=== PATIENT | male | born 1960 | race Caucasian/White ===

== ENCOUNTER → 2020-08-12 | Outpatient (CLI) | payer MEDICARE, OTHER ==
[~2020-08-12] MED LIST: ALLERGY INJ SQ; ASPIRIN EC81 MG PO; BACTRIM DS TAB1 EACH PO; CITRUCEL500 MG PO; DULERA 200 MCG8.8 GM INH; FISH OIL 1,0001 EAC3 PO; LIPITOR TAB 1010 MG PO; MULTIVITAMINS1 EAC1 PO; NORCO 5-325 TA1 EACH PO; PREDNISONE20 MG PO; PROAIR HFA8.5 GM INH; ROBAXIN 750 MG750 MG PO; ROBITUSSIN AC480 ML PO; SINGULAIR10 MG PO; SYNTHROID75 MCG PO; TESSALON PERLE100 MG PO; TYLENOL W/CODEIN1 E1 PO; VITAMIN D2000 UNI1 PO
== END ==
LOC: KOH-I 15:25
DX: M79.642 Pain in left hand (principal)
CPT/HCPCS: 73130

== ENCOUNTER → 2020-09-18 | Outpatient (CLI) | payer BLACK LUNG, MEDICARE, OTHER | LOC: CT 10:05 | DX: J60 Coalworker's pneumoconiosis (principal) | CPT/HCPCS: 71250 ==

== ENCOUNTER → 2021-03-12 | Outpatient (CLI) | payer BLACK LUNG, MEDICARE | LOC: KOH-I 10:30 | DX: J60 Coalworker's pneumoconiosis (principal); R91.8 Other nonspecific abnormal finding of lung field | CPT/HCPCS: 71250 ==

== ENCOUNTER → 2021-07-06 | Outpatient (CLI) | payer BLACK LUNG, MEDICARE | LOC: KOH-I 09:59 | DX: R06.02 Shortness of breath (principal); R91.8 Other nonspecific abnormal finding of lung field | CPT/HCPCS: 71046 ==

== ENCOUNTER → 2021-08-03 | Outpatient (CLI) | payer MEDICARE, BLACK LUNG ==
[2021-08-03 09:16] LABS: HEMOGLOBIN 15.5 gm/dl (14.0-17.5); RED BLOOD COUNT 4.97 M/UL (4.20-5.50); WHITE BLOOD COUNT 11.8 K/UL (4.5-11.0)
[2021-08-04 07:12] LABS: BUN 14 mg/dL (8-27); BUN/CREATININE RATIO 13 (10-24); CALCIUM, SERUM 9.8 mg/dL (8.6-10.2); CARBON DIOXIDE, TOTAL 25 mmol/L (20-29); CHLORIDE, SERUM 104 mmol/L (96-106); CHOLESTEROL, TOTAL 164 mg/dL (100-199); EGFR IF AFRICN AM 82 (>59); EGFR IF NONAFRICN AM 71 (>59); GLUCOSE, SERUM 88 mg/dL (65-99); HDL CHOLESTEROL 60 mg/dL (>39); LDL CHOLESTEROL CALC 83 mg/dL (0-99); LDL/HDL RATIO 1.4 ratio (0.0-3.6); POTASSIUM, SERUM 4.3 mmol/L (3.5-5.2); SODIUM, SERUM 145 mmol/L (134-144); T. CHOL/HDL RATIO 2.7 ratio (0.0-5.0); TRIGLYCERIDES 116 mg/dL (0-149)
[2021-08-04 08:15] LABS: ALBUMIN 4.2 g/dL (3.8-4.8); ALKALINE PHOSPHATASE 65 IU/L (44-121); ALT (SGPT) 25 IU/L (0-44); AST (SGOT) 17 IU/L (0-40); BILIRUBIN, DIRECT 0.19 mg/dL (0.00-0.40); BILIRUBIN, TOTAL 0.6 mg/dL (0.0-1.2); PROTEIN, TOTAL 6.5 g/dL (6.0-8.5)
== END ==
LOC: LAB 08:53
PROVIDERS: Internal Medicine
DX: E78.5 Hyperlipidemia, unspecified (principal); N40.1 Benign prostatic hyperplasia with lower urinary tract symptoms
CPT/HCPCS: 36415; 80048; 80061; 80076; 84153; 84443; 85025

== ENCOUNTER → 2021-08-17 | Outpatient (CLI) | payer MEDICARE, BLACK LUNG ==
[2021-08-17 15:44] LABS: HEMOGLOBIN 15.5 gm/dl (14.0-17.5); RED BLOOD COUNT 4.89 M/UL (4.20-5.50); WHITE BLOOD COUNT 11.9 K/UL (4.5-11.0)
[2021-08-18 08:15] LABS: IMMUNOGLOBULIN A, QN, SERUM 324 mg/dL (61-437); IMMUNOGLOBULIN G, QN, SERUM 871 mg/dL (603-1613)
== END ==
LOC: LAB 15:01
PROVIDERS: Nurse Practitioner Family
DX: J60 Coalworker's pneumoconiosis (principal)
CPT/HCPCS: 36415; 82784; 82785; 85025

== ENCOUNTER → 2021-08-31 | Outpatient (CLI) | payer MEDICARE, BLACK LUNG | LOC: HEART 5 08-26 08:00 | DX: I10 Essential (primary) hypertension (principal); R06.02 Shortness of breath; I07.1 Rheumatic tricuspid insufficiency; Z87.891 Personal history of nicotine dependence; Z68.26 Body mass index [BMI] 26.0-26.9, adult | CPT/HCPCS: 78452; 93306; A9502 ==

== ENCOUNTER 2021-10-18 13:25 | Observation (INO) | payer BLACK LUNG, MEDICARE ==
[~2021-10-18] VITALS: Ht 177.8 cm; Wt 88.9 kg
[2021-10-18 14:23] LABS: HEMOGLOBIN 16.3 gm/dl (14.0-17.5); RED BLOOD COUNT 5.06 M/UL (4.20-5.50); WHITE BLOOD COUNT 14.6 K/UL (4.5-11.0)
[2021-10-18 15:02] LABS: BUN/CREATININE RATIO 15 (0-10)
[2021-10-19 02:11] LABS: HEMOGLOBIN 15.7 gm/dl (14.0-17.5); RED BLOOD COUNT 4.9 M/UL (4.20-5.50); WHITE BLOOD COUNT 11.5 K/UL (4.5-11.0)
[2021-10-19 02:34] LABS: BUN/CREATININE RATIO 16 (0-10)
[2021-10-19] MEDS ORDERED: PREDNISONE20 MG PO (09:31)
== END 2021-10-19 12:40 | disposition home or self-care (01) ==
LOC: ER1 13:25 → CDU 16:42 → PROG CARE 16:42
PROVIDERS: Emergency Medicine; Physician Assistant Medical; ADMIT Internal Medicine
DX: I49.3 Ventricular premature depolarization (principal); R00.8 Other abnormalities of heart beat; J60 Coalworker's pneumoconiosis; E03.9 Hypothyroidism, unspecified; E78.5 Hyperlipidemia, unspecified; I10 Essential (primary) hypertension; J44.9 Chronic obstructive pulmonary disease, unspecified; G56.03 Carpal tunnel syndrome, bilateral upper limbs; Z20.822 Contact with and (suspected) exposure to COVID-19; Z79.82 Long term (current) use of aspirin; Z79.891 Long term (current) use of opiate analgesic; Z79.890 Hormone replacement therapy; Z79.899 Other long term (current) drug therapy; Z99.81 Dependence on supplemental oxygen; Z85.828 Personal history of other malignant neoplasm of skin; Z87.891 Personal history of nicotine dependence; Z79.52 Long term (current) use of systemic steroids; Z79.51 Long term (current) use of inhaled steroids; Z98.890 Other specified postprocedural states
CPT/HCPCS: 36415; 71045; 80048; 80053; 82550; 82553; 83735; 83880; 84439; 84443; 84484; 85025; 85027; 85379; 85610; 85730; 93005; 93270; 94640; 94664; 94760; 99285; G0378; U0002

== ENCOUNTER → 2021-12-02 | Outpatient (CLI) | payer MEDICARE | LOC: HEART 5 07:57 | DX: I49.3 Ventricular premature depolarization (principal) ==

== ENCOUNTER 2021-12-13 16:34 | Emergency (ER) | payer MEDICARE | END 2021-12-13 21:48 | disposition left against medical advice (07) | LOC: ER1 16:34 | DX: R51.9 Headache, unspecified (principal); R68.83 Chills (without fever) | CPT/HCPCS: 71045; 99281 ==

== ENCOUNTER → 2021-12-14 | Outpatient (CLI) | payer MEDICARE | LOC: EROP 13:03 | DX: E03.9 Hypothyroidism, unspecified (principal); E78.5 Hyperlipidemia, unspecified; J44.1 Chronic obstructive pulmonary disease with (acute) exacerbation; U07.1 COVID-19 | CPT/HCPCS: G0463 ==